=== PATIENT | female | born 1945 | race Caucasian/White ===

== ENCOUNTER 2022-06-18 15:53 | Inpatient (IN) ==
[2022-06-18] MEDS ORDERED: SODIUM CHLORIDE 0.9% 500 ML IV STA (19:12)
[2022-06-18] MEDS ORDERED: ONDANSETRON 4 MG/2 ML VIAL IV STA (19:12)
[2022-06-18] MEDS ORDERED: PANTOPRAZOLE 40 MG VIAL IV STA (19:12)
[2022-06-18 19:37] LABS: Basophils # 0.1 10*3/uL (0.0-0.2); Basophils % 0.2 % (0.0-0.8); Eosinophils # 0.1 10*3/uL (0.0-0.87); Eosinophils % 0.4 % (0.00-10.9); Hematocrit 40.2 VOL% (35.7-47.0); Hemoglobin 13.2 GM/DL (12.0-16.0); Immature Granulocytes % 0.5 %; Immature Granulocytes Absolute 0.11 #; Lymphocytes # 1.8 10*3/uL (1.4-4.0); Lymphocytes % 8.7 % (21.3-54.2); Mean Corpuscular HGB Conc 32.8 GM/DL (32-36); Mean Corpuscular Volume 95.9 FL (87-102); Mean Platelet Volume 9.3 FL (9.6-12.0); Monocytes # 1.4 10*3/uL (0.11-0.8); Monocytes % 6.4 % (1.7-12.7); Neutrophils % 83.8 % (38.7-73.9); Platelet Count 258 T/CUMM (130-400); Red Blood Count 4.19 MC/CUMM (3.8-5.5); Red Cell Distribution Width 13.8 % (9.3-17.3)
[2022-06-18 20:10] LABS: Alanine Aminotransferase < 6 U/L (13-56); Albumin 3.8 G/DL (3.4-5.0); Alkaline Phosphatase 73 U/L (45-117); Aspartate Amino Transferase 18 U/L (0-37); Blood Urea Nitrogen 18 MG/DL (7-18); Carbon Dioxide 29 MMOL/L (21-32); Chloride 107 MMOL/L (98-107); Glucose 115 MG/DL (74-106); Osmolality,Calculated 281.4 MOS/KG (273-304); Sodium 140 MMOL/L (136-145); Total Protein 6.4 G/DL (6.4-8.2)
[2022-06-18 20:20] LABS: INR 0.9; PT Patient Result 10.1 SECS (10.1-12.1)
[2022-06-18 21:07] LABS: Lymphocytes 7 % (20-55); Platelet Estimate Normal; Total Cells Counted 100
[2022-06-18] MEDS ORDERED: metroNIDAZOLE INJ 500 MG/100 ML PREMIX IV STA (21:15)
[2022-06-18] MEDS ORDERED: CIPROFLOXACIN INJ 400 MG/200 ML PREMIX IV STA (21:15)
[2022-06-18] MEDS ORDERED: ONDANSETRON 4 MG/2 ML VIAL IV PRN (21:19)
[2022-06-18] MEDS ORDERED: ACETAMINOPHEN 325 MG TABLET PO PRN (21:19)
[2022-06-18] MEDS ORDERED: ALPRAZolam 0.5 MG TABLET PO PRN (21:27)
[2022-06-18] MEDS: MEMANTINE 10 MG TABLET PO SCH (23:28)
[2022-06-18] MEDS: DONEPEZIL 10 MG TABLET PO SCH (23:28)
[2022-06-19] MEDS ORDERED: ALBUTEROL 2.5 MG/3 ML NEB RESP TX PRN (00:05)
[2022-06-19] MEDS: SODIUM CHLORIDE 0.9% 1,000 ML IV SCH ×2 (00:30→14:22)
[2022-06-19] MEDS: metroNIDAZOLE INJ 500 MG/100 ML PREMIX IV SCH ×3 (04:16→21:02)
[2022-06-19] MEDS: LEVOTHYROXINE 50 MCG TABLET PO SCH (05:19)
[2022-06-19 06:28] LABS: Basophils # 0.1 10*3/uL (0.0-0.2); Basophils % 0.4 % (0.0-0.8); Eosinophils # 0.3 10*3/uL (0.0-0.87); Eosinophils % 2.1 % (0.00-10.9); Hematocrit 34.7 VOL% (35.7-47.0); Hemoglobin 11.2 GM/DL (12.0-16.0); Immature Granulocytes % 0.5 %; Immature Granulocytes Absolute 0.08 #; Lymphocytes # 2.6 10*3/uL (1.4-4.0); Lymphocytes % 16.4 % (21.3-54.2); Mean Corpuscular HGB Conc 32.3 GM/DL (32-36); Mean Corpuscular Volume 97.7 FL (87-102); Monocytes # 1.4 10*3/uL (0.11-0.8); Monocytes % 8.5 % (1.7-12.7); Neutrophils % 72.1 % (38.7-73.9); Platelet Count 221 T/CUMM (130-400); Red Blood Count 3.55 MC/CUMM (3.8-5.5); Red Cell Distribution Width 14.2 % (9.3-17.3); White Blood Count 16.1 T/CUMM (4-12)
[2022-06-19 06:38] LABS: Alanine Aminotransferase < 6 U/L (13-56); Albumin 2.9 G/DL (3.4-5.0); Alkaline Phosphatase 57 U/L (45-117); Aspartate Amino Transferase 16 U/L (0-37); Blood Urea Nitrogen 13 MG/DL (7-18); Calcium 9.7 MG/DL (8.5-10.1); Carbon Dioxide 25 MMOL/L (21-32); Chloride 109 MMOL/L (98-107); Glucose 95 MG/DL (74-106); Osmolality,Calculated 278.4 MOS/KG (273-304); Potassium 3.4 MMOL/L (3.5-5.1); Sodium 140 MMOL/L (136-145); Total Protein 5.4 G/DL (6.4-8.2)
[2022-06-19] MEDS: CIPROFLOXACIN INJ 400 MG/200 ML PREMIX IV SCH ×2 (09:22→22:04)
[2022-06-19] MEDS: IPRATROPIUM 0.06% NASAL SPRAY 15 ML BOTTLE BOTH NARES SCH ×2 (09:23→21:04)
[2022-06-19] MEDS: DULoxetine 30 MG CAPSULE PO SCH (09:23)
[2022-06-19] MEDS: CHOLECALCIFEROL 1,000 UNIT TABLET PO SCH (09:24)
[2022-06-19] MEDS: amLODIPine 2.5 MG TABLET PO SCH (09:24)
[2022-06-19] MEDS: MULTIVITAMIN (CENTRUM) TABLET PO SCH (09:24)
[2022-06-19] MEDS: MEMANTINE 10 MG TABLET PO SCH ×2 (09:24→21:02)
[2022-06-19] MEDS: ATORVASTATIN 10 MG TABLET PO SCH (09:24)
[2022-06-19] MEDS: Fluticasone-Umeclidin-Vilanter [Trelegy Ellipta] 100-62.5-25 mcg INH SCH (09:25)
[2022-06-19] MEDS: ASCORBIC ACID 500 MG TABLET PO SCH (09:25)
[2022-06-19] MEDS: ZINC GLUCONATE 50 MG TABLET PO SCH (09:25)
[2022-06-19] MEDS: MONTELUKAST 10 MG TABLET PO SCH (09:25)
[2022-06-19] MEDS: MAGNESIUM OXIDE 400 MG TABLET PO SCH (09:25)
[2022-06-19] MEDS: CARBIDOPA/LEVODOPA 25-100 MG TABLET PO SCH ×3 (09:25→21:02)
[2022-06-19] MEDS ORDERED: MAGNESIUM SULF RIDER 4 GM/100 ML PREMIX IV PRN (09:50)
[2022-06-19] MEDS ORDERED: MAGNESIUM SULF RIDER 2 GM/50 ML PREMIX IV PRN (09:50)
[2022-06-19] MEDS: PANTOPRAZOLE 40 MG TABLET PO SCH ×2 (10:58→21:01)
[2022-06-19] MEDS: POTASSIUM CHLORIDE 20 MEQ TABLET PO PRN ×3 (10:58→18:15)
[2022-06-19] MEDS ORDERED: HYDROmorphone 1 MG/1 ML SYRINGE IV PRN (11:02)
[2022-06-19] MEDS: POLYETHYLENE GLYCOL POWDER 17 GM PACK PO SCH ×2 (13:01→21:07)
[2022-06-19] MEDS ORDERED: TEMAZEPAM 15 MG CAPSULE PO SCH (21:00)
[2022-06-19] MEDS: DONEPEZIL 10 MG TABLET PO SCH (21:01)
[2022-06-19] MEDS ORDERED: rOPINIRole 0.25 MG TABLET PO SCH (23:00)
[2022-06-20] MEDS: SODIUM CHLORIDE 0.9% 1,000 ML IV SCH (03:41)
[2022-06-20] MEDS: metroNIDAZOLE INJ 500 MG/100 ML PREMIX IV SCH (03:42)
[2022-06-20] MEDS: LEVOTHYROXINE 50 MCG TABLET PO SCH (05:42)
[2022-06-20 06:16] LABS: Basophils # 0.1 10*3/uL (0.0-0.2); Basophils % 0.5 % (0.0-0.8); Eosinophils # 0.6 10*3/uL (0.0-0.87); Eosinophils % 4.2 % (0.00-10.9); Immature Granulocytes % 0.5 %; Immature Granulocytes Absolute 0.07 #; Lymphocytes # 2.2 10*3/uL (1.4-4.0); Lymphocytes % 16.8 % (21.3-54.2); Mean Corpuscular HGB Conc 32.4 GM/DL (32-36); Mean Corpuscular Volume 98.3 FL (87-102); Mean Platelet Volume 9.9 FL (9.6-12.0); Monocytes # 1.1 10*3/uL (0.11-0.8); Monocytes % 8.4 % (1.7-12.7); Neutrophils % 69.6 % (38.7-73.9); Platelet Count 209 T/CUMM (130-400); Red Blood Count 3.46 MC/CUMM (3.8-5.5); Red Cell Distribution Width 14.1 % (9.3-17.3); White Blood Count 13.2 T/CUMM (4-12)
[2022-06-20 06:30] LABS: Potassium 3.6 MMOL/L (3.5-5.1)
[2022-06-20] MEDS ORDERED: NEBIVOLOL 10 MG TABLET PO SCH (09:00)
[2022-06-20] MEDS: CIPROFLOXACIN INJ 400 MG/200 ML PREMIX IV SCH (10:19)
[2022-06-20] MEDS: DULoxetine 30 MG CAPSULE PO SCH (10:20)
[2022-06-20] MEDS: amLODIPine 2.5 MG TABLET PO SCH (10:20)
[2022-06-20] MEDS: MAGNESIUM OXIDE 400 MG TABLET PO SCH (10:20)
[2022-06-20] MEDS: MONTELUKAST 10 MG TABLET PO SCH (10:21)
[2022-06-20] MEDS: MULTIVITAMIN (CENTRUM) TABLET PO SCH (10:21)
[2022-06-20] MEDS: ZINC GLUCONATE 50 MG TABLET PO SCH (10:21)
[2022-06-20] MEDS: CHOLECALCIFEROL 1,000 UNIT TABLET PO SCH (10:22)
[2022-06-20] MEDS: ATORVASTATIN 10 MG TABLET PO SCH (10:22)
[2022-06-20] MEDS: CARBIDOPA/LEVODOPA 25-100 MG TABLET PO SCH (10:22)
[2022-06-20] MEDS: ASCORBIC ACID 500 MG TABLET PO SCH (10:22)
[2022-06-20] MEDS: Fluticasone-Umeclidin-Vilanter [Trelegy Ellipta] 100-62.5-25 mcg INH SCH (10:22)
[2022-06-20] MEDS: MEMANTINE 10 MG TABLET PO SCH (10:22)
[2022-06-20] MEDS: POLYETHYLENE GLYCOL POWDER 17 GM PACK PO SCH (10:23)
[2022-06-20] MEDS: PANTOPRAZOLE 40 MG TABLET PO SCH (10:24)
[2022-06-20] MEDS: IPRATROPIUM 0.06% NASAL SPRAY 15 ML BOTTLE BOTH NARES SCH (10:24)
[2022-06-20 12:51] VITALS: BP 124/70
== END 2022-06-20 13:35 | disposition home or self-care (01) | DRG 394 ==
LOC: N.ED 15:53 → N.5E 22:57
PROVIDERS: ADMIT Internal Medicine; ATTEND Internal Medicine